=== PATIENT | male | born 1990 | race American Indian/Alaskan Native ===

== ENCOUNTER 2016-04-21 10:44 | Emergency (ER) | payer OTHER ==
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
[2016-04-21 11:10] VITALS: BP 123/50
[2016-04-21] MEDS ORDERED: Sodium Chloride 0.9% 10 ML Syringe FLUSH PRN (11:16)
[2016-04-21] MEDS ORDERED: Sodium Chloride 0.9% 1,000 ML IV ONE (11:16)
[2016-04-21] MEDS ORDERED: HYDROmorphone 1 MG/ML Syringe IVPUSH ONE (11:16)
[2016-04-21] MEDS ORDERED: Ondansetron 4 MG/2 ML SDV IV ONE (11:16)
[2016-04-21] MEDS ORDERED: Iopamidol 612 MG/ML 50 ML SDV IVPUSH ONE (11:20)
[2016-04-21] MEDS ORDERED: Iopamidol 612 MG/ML 75 ML Bottle IVPUSH ONE (11:21)
[2016-04-21] MEDS ORDERED: cefTRIAXone 1 GM in Sodium Chloride 0.9% 50 ML IV ONE (11:49)
[2016-04-21 11:50] LABS: CHLORIDE,CL 107 mmol/L (101-111); SODIUM,NA 140 mmol/L (135-145)
[2016-04-21] MEDS ORDERED: Diphtheria,Pertussis(Acell),Tetanus Vaccine 0.5 ML SDV IM ONE (13:53)
== END 2016-04-21 14:05 | disposition home or self-care (01) ==
LOC: DL.ED 10:44
DX: S06.0X0A Concussion without loss of consciousness, initial encounter (principal); S43.402A Unspecified sprain of left shoulder joint, initial encounter; S93.402A Sprain of unspecified ligament of left ankle, initial encounter; Y08.89XA Assault by other specified means, initial encounter; F10.120 Alcohol abuse with intoxication, uncomplicated; J02.0 Streptococcal pharyngitis; F12.90 Cannabis use, unspecified, uncomplicated
CPT/HCPCS: 36415; 70450; 71260; 72125; 73610; 74177; 80053; 80305; 81001; 82150; 82550; 83690; 85025; 87430; 90471; 90715; 96361; 96365; 96375; 99285; G0480; J0696; J1170; J2405; J7030; J7050; Q9967; 99284

== ENCOUNTER 2019-09-10 19:53 | Emergency (ER) | payer OTHER ==
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
[2019-09-10 20:37] VITALS: BP 137/87; PULSE 86
== END 2019-09-10 20:32 ==
LOC: DL.ED 19:53
DX: F15.10 Other stimulant abuse, uncomplicated (principal); Z20.828 Contact with and (suspected) exposure to other viral communicable diseases; Z98.890 Other specified postprocedural states
CPT/HCPCS: 80305-QW; 99283; U0002

== ENCOUNTER 2021-04-25 22:18 | Emergency (ER) | payer SELFPAY ==
[2021-04-25 23:46] VITALS: BP 134/94; PULSE 83
[2021-04-26] MEDS ORDERED: Bacitracin Oint 1 GM U/D Packet TOP ONE (00:35)
== END 2021-04-26 01:20 | disposition home or self-care (01) ==
LOC: DL.ED 22:18
DX: S86.912A Strain of unspecified muscle(s) and tendon(s) at lower leg level, left leg, initial encounter (principal); S80.212A Abrasion, left knee, initial encounter; Z72.0 Tobacco use; Y04.0XXA Assault by unarmed brawl or fight, initial encounter
CPT/HCPCS: 73562-LT; 99283-25

== ENCOUNTER 2021-08-16 02:52 | Emergency (ER) | payer SELFPAY ==
[2021-08-16] MEDS ORDERED: Calcium Carbonate 500 MG Tab.Chew PO ONE (03:30)
[2021-08-16 03:47] LABS: AMPHETAMINES,URINE NEGATIVE (NEGATIVE); BARBITURATES,URINE NEGATIVE (NEGATIVE); BENZODIAZEPINE,URINE NEGATIVE (NEGATIVE); MDMA (ECSTASY), URINE NEGATIVE (NEGATIVE); METHADONE,URINE NEGATIVE (NEGATIVE); METHAMPHETAMINES,URINE NEGATIVE (NEGATIVE); OPIATES,URINE NEGATIVE (NEGATIVE); OXYCODONE,URINE NEGATIVE (NEGATIVE); PHENCYCLIDINE,URINE NEGATIVE (NEGATIVE); TCA,URINE NEGATIVE (NEGATIVE)
[2021-08-16 03:51] LABS: ANION GAP 12.8 mEq/L (7-13); CHLORIDE,CL 103 mmol/L (98-107); SODIUM,NA 139 mmol/L (136-145)
[2021-08-16 03:52] LABS: ESTIMATED GFR 111 mL/min (>=60)
[2021-08-16] MEDS ORDERED: cloNIDine 0.1 MG Tab PO ONE (04:16)
[2021-08-16] MEDS ORDERED: cloNIDine 0.1 MG Tab ONE (04:18)
[2021-08-16 04:19] VITALS: BP 162/109; PULSE 68
== END 2021-08-16 04:19 | disposition home or self-care (01) ==
LOC: DL.ED 02:52
DX: U07.1 COVID-19 (principal); R74.01 Elevation of levels of liver transaminase levels; H69.82 Other specified disorders of Eustachian tube, left ear; I10 Essential (primary) hypertension; Z79.899 Other long term (current) drug therapy
CPT/HCPCS: 36415; 80053; 80305; 80307; 81003; 85025; 87635; 99283; 99284; A9270; U0002

== ENCOUNTER 2022-08-10 08:53 | Emergency (ER) | payer MEDICAID ==
[2022-08-10 09:15] VITALS: PULSE 86
[2022-08-10] MEDS ORDERED: Benzonatate 100 MG Cap PO ONE (09:30)
[2022-08-10] MEDS ORDERED: cloNIDine 0.1 MG Tab PO ONE (09:30)
[2022-08-10 09:35] VITALS: BP 169/125
== END 2022-08-10 09:57 | disposition home or self-care (01) ==
LOC: DL.ED 08:53
DX: R10.9 Unspecified abdominal pain (principal); R05.1 Acute cough; I10 Essential (primary) hypertension; F17.210 Nicotine dependence, cigarettes, uncomplicated; Z79.899 Other long term (current) drug therapy
CPT/HCPCS: 99283; A9270

== ENCOUNTER 2024-09-29 23:20 | Emergency (ER) | payer SELFPAY ==
[2024-09-29] MEDS: Dexamethasone 4 MG/ML SDV IM ONE (23:43)
[2024-09-30 00:10] VITALS: BP 129/92; PULSE 74
== END 2024-09-30 00:09 | disposition home or self-care (01) ==
LOC: DL.ED 23:20
DX: S62.624A Displaced fracture of middle phalanx of right ring finger, initial encounter for closed fracture (principal); I10 Essential (primary) hypertension; Z86.16 Personal history of COVID-19; Z79.899 Other long term (current) drug therapy; Y04.2XXA Assault by strike against or bumped into by another person, initial encounter; X50.1XXA Overexertion from prolonged static or awkward postures, initial encounter
CPT/HCPCS: 73120; 96372; 99283; 99284; J1100

== ENCOUNTER 2024-11-25 05:11 | Emergency (ER) | payer MEDICAID ==
[2024-11-25] MEDS: Dexamethasone 4 MG/ML SDV IVPUSH ONE (05:24)
[2024-11-25 05:28] LABS: BASOPHILS PERCENT AUTO 0.1 % (0.0-1.0); EOSINOPHILS PERCENT AUTO 1.2 % (1.0-3.0); LYMPHOCYTES PERCENT AUTO 21.4 % (20.5-50.1); MONOCYTES PERCENT AUTO 8.2 % (2-8); NEUTROPHILS PERCENT AUTO 69.1 % (42.2-75.2); PLATELET COUNT,PLT 143 10^3/uL (150-450); RED BLOOD CELL COUNT 4.70 10^6/uL (4.6-6.2); WHITE BLOOD CELL COUNT,WBC 8.2 10^3/uL (5.0-10.0)
[2024-11-25 05:50] LABS: A/G RATIO 1.0; ALANINE AMINOTRANSFERASE,ALT 186.0 U/L (16-63); ASPARTATE AMNIOTRANSFERASE,AST 169.0 U/L (15-37); BILIRUBIN TOTAL 0.3 mg/dL (0.2-1.0); BLOOD UREA NITROGEN,BUN 9.0 mg/dL (7-18); CARBON DIOXIDE,CO2 25.0 mmol/L (21-32); CHLORIDE,CL 105.0 mmol/L (98-107); CREATININE 0.81 mg/dL (0.70-1.30); EST CRCL DRUG DOSING (CG) 139.44 mL/min; ETHANOL BLOOD MEDICAL 91.0 mg/dL (0); GLUCOSE RANDOM 103.0 mg/dL (70-99); POTASSIUM,K 3.4 mmol/L (3.5-5.1); PROTEIN TOTAL,TP 7.9 g/dL (6.4-8.2); SODIUM,NA 143.0 mmol/L (136-145)
[2024-11-25 05:53] LABS: ESTIMATED GFR 120.0 mL/min (>=60); LACTIC ACID 1.7 mmol/L (0.4-2.0)
[2024-11-25 06:35] VITALS: BP 154/100; PULSE 122
[2024-11-25] MEDS: Ketorolac 30 MG/ML SDV IVPUSH ONE (06:43)
[2024-11-25 07:03] LABS: APPEARANCE,URINE CLEAR (CLEAR); GLUCOSE,URINE NEGATIVE (NEGATIVE); OCCULT BLOOD,URINE NEGATIVE (NEGATIVE)
[2024-11-25 07:08] LABS: AMPHETAMINES,URINE NEGATIVE (NEGATIVE); BARBITURATES,URINE NEGATIVE (NEGATIVE); MDMA (ECSTASY), URINE NEGATIVE (NEGATIVE); METHAMPHETAMINES,URINE NEGATIVE (NEGATIVE); OPIATES,URINE NEGATIVE (NEGATIVE); OXYCODONE,URINE NEGATIVE (NEGATIVE); PHENCYCLIDINE,URINE NEGATIVE (NEGATIVE); TCA,URINE NEGATIVE (NEGATIVE)
== END 2024-11-25 07:05 | disposition home or self-care (01) ==
LOC: DL.ED 05:11
DX: J40 Bronchitis, not specified as acute or chronic (principal); I10 Essential (primary) hypertension; Z79.899 Other long term (current) drug therapy; Z86.16 Personal history of COVID-19
CPT/HCPCS: 36415; 71045; 80053; 80305; 80307; 81003; 83605; 83690; 83735; 84484; 85025; 85379; 93005; 93010; 96361; 96374; 96375; 99284; 99285; J1100; J1885; J7030; J7620; A9270-GY